=== PATIENT | male | born 1995 | race Caucasian/White ===

== ENCOUNTER 2017-02-06 19:23 | Emergency (ER) | payer OTHER ==
[~2017-02-06] VITALS: Ht 165.1 cm; Wt 63.5 kg
--- NOTE | 2017-02-06 19:23 | NUR ---
Patient was BIBA at this time.
[2017-02-06 19:44] VITALS: BP 137/76
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
--- NOTE | 2017-02-06 19:59 | NUR ---
Patient taken to XRAY via wheelchair per tech.
--- NOTE | 2017-02-06 20:49 | NUR ---
Dr. Lynn evaluating patient.
[2017-02-06] MEDS ORDERED: IBUPROFEN 800 MG TAB PO ONE (20:55)
[2017-02-06 21:05] VITALS: BP 127/63
== END 2017-02-06 21:36 | disposition home or self-care (01) ==
LOC: MED 19:23
DX: S13.4XXA Sprain of ligaments of cervical spine, initial encounter (principal); Z88.6 Allergy status to analgesic agent; V49.49XA Driver injured in collision with other motor vehicles in traffic accident, initial encounter; Y93.89 Activity, other specified; Y92.488 Other paved roadways as the place of occurrence of the external cause; Y99.8 Other external cause status
CPT/HCPCS: 72040; 99284